=== PATIENT | female | born 1955 | race Caucasian/White ===

== ENCOUNTER 2019-10-24 07:00 | Day surgery (SDC) | payer OTHER ==
[2019-10-21 10:27] VITALS: BMI 26.2
[2019-10-21 11:06] LABS: Protime INR 0.95
--- NOTE | 2019-10-21 11:48 | RAD REPORT ---
EXAM DESCRIPTION: RAD - Chest Pa And Lat (2 Views) - 10/21/2019 11:33 am CLINICAL HISTORY: pre op for [facility] Chest pain. COMPARISON: Chest Pa And Lat (2 Views) dated 02/15/2019; Chest Pa And Lat (2 Views) dated 10/26/2018; Chest Pa And Lat (2 Views) dated 10/20/2017; CHEST SINGLE VIEW dated 10/20/2014 FINDINGS: The lungs are clear. The heart is upper limit of normal in size. No displaced fractures. IMPRESSION: No acute or concerning finding suspected.
[2019-10-24] MEDS ORDERED: NA CHLORIDE 0.9% 500 ML ONE (07:12)
[2019-10-24] MEDS ORDERED: HEPA 1000U/500MLS 2,000 UNIT/1,000 ML BAG IV ONE (07:17)
[2019-10-24] MEDS ORDERED: MIDAZOLAM HCL 2 MG/2 ML INJ ONE ×2 (07:17→07:50)
[2019-10-24] MEDS ORDERED: HEPARIN 5000 UNIT/ML 1 ML VIAL ONE (07:17)
[2019-10-24] MEDS ORDERED: NITROGLYCERIN 100 MCG/ML SYR (for cath lab use only) IV ONE (07:18)
[2019-10-24] MEDS ORDERED: NITROGLYCERIN/D5W 25 MG/250 ML BTL IV ONE (07:18)
[2019-10-24] MEDS ORDERED: LIDOCAINE 1% MPF 30 ML VIAL ONE (07:18)
[2019-10-24] MEDS ORDERED: NICARDIPINE HCL 25 MG/10 ML IV ONE (07:18)
[2019-10-24] MEDS ORDERED: FENTANYL CITR 100 MCG/2 ML ONE ×2 (07:18→07:50)
[2019-10-24] MEDS ORDERED: ATROPINE SULF 1 MG/10 ML SYR IV ONE (07:19)
[2019-10-24] MEDS ORDERED: NA CHLORIDE 0.9% 0 ML ONE (07:19)
[2019-10-24 10:26] VITALS: BP 112/56; TEMP 97.4; O2SAT 100
--- NOTE | 2019-10-24 19:34 | OP ---
Surgeon: Demetrio Wen MD Procedures: Left heart catheterization, coronary left ventricular angiography. Indication: Abnormal EKG with shortness of breath, thought to be angina. Procedure Findings: The patient has normal coronary arteries. Normal left ventricular ejection frac tion. Left ventricular end-diastolic pressure is elevated at 21 mmHg consistent with diastolic dysfu nction or impaired left ventricular relaxation. Procedure In Detail: The patient was brought to the cardiac cathead operator in a fasting state, sedated wit h Versed and fentanyl. Prepared and draped in usual sterile fashion. Right radial approach was used . We anesthetized the skin over the right radial artery with 1% lidocaine, entered the artery with a 21-gauge needle, cannulated it with a 0.021 inch diameter guidewire, placed a 6-[place] Terumo sheath . We gave a radial cocktail consisting of nicardipine, heparin, and nitroglycerin. We guided the TI G catheter into the ascending aorta using fluoroscopy and a short radius J-tip Terumo Glidewire. We were able to angiogram right coronary, left coronary, left ventricle with a TIG catheter. At the end of the procedure, the catheter was withdrawn over a J-wire. The sheath was removed and arteriotomy was closed using a TR band. Estimated Blood Loss: 5 mL. Quad Stayer: Nazia Cox. Complications: None. LEIDY/ARIAN Voice ID: [id number] Report ID: [id number]
== END 2019-10-24 10:21 | disposition home or self-care (01) ==
LOC: CCL 07:00
PROVIDERS: ATTEND Internal Medicine
DX: I20.8 Other forms of angina pectoris (principal); R06.02 Shortness of breath; R94.31 Abnormal electrocardiogram [ECG] [EKG]; I10 Essential (primary) hypertension; E78.2 Mixed hyperlipidemia; Z79.82 Long term (current) use of aspirin; F17.210 Nicotine dependence, cigarettes, uncomplicated; Z88.3 Allergy status to other anti-infective agents; Z82.49 Family history of ischemic heart disease and other diseases of the circulatory system
CPT/HCPCS: 36415; 85610; 85730; 71046; 93458; C1893; J1644; J2250; J3010; J7040; J0583